=== PATIENT | female | born 1955 | race Caucasian/White ===

== ENCOUNTER 2017-11-28 09:04 | Day surgery (SDC) | payer OTHER ==
[~2017-11-28 09:04] MED LIST: CEFAZOLIN 1 GM INJ; DEXAMETHASONE 4 MG/ML 1 ML INJ; ONDANSETRON 4 MG INJ
[2017-11-28] MEDS ORDERED: MIDAZOLAM 1 MG/ML 2 ML INJ (10:03)
[2017-11-28] MEDS ORDERED: FENTAnyl 50 MCG/ML VIAL (10:03)
[2017-11-28] MEDS ORDERED: METOCLOPRAMIDE 10 MG INJ (10:04)
[2017-11-28] MEDS ORDERED: LIDOCAINE 2% (SDV) 5 ML INJ (10:05)
[2017-11-28] MEDS ORDERED: POVIDONE IODINE 10% 28.4 GM OINT (10:36)
[2017-11-28] MEDS ORDERED: FENTAnyl 50 MCG/ML VIAL IV ×2 (11:00)
[2017-11-28] MEDS ORDERED: ONDANSETRON 4 MG INJ IV (11:00)
[2017-11-28] MEDS ORDERED: HYDROmorphONE 1 MG/5 ML IV SYRINGE IV (11:00)
[2017-11-28] MEDS ORDERED: PROPOFOL 20 ML (11:11)
[2017-11-28] MEDS ORDERED: BUPIVACAINE 0.5% (SDV) 30 ML INJ (11:31)
[2017-11-28] MEDS: LIDOCAINE 1% (MPF) 30 ML INJ (12:15)
[2017-11-28] MEDS: HYDROmorphONE 1 MG/5 ML IV SYRINGE IV (13:26)
== END 2017-11-28 14:40 | disposition home or self-care (01) ==
LOC: SDS 09:04
DX: M20.12 Hallux valgus (acquired), left foot (principal); M21.612 Bunion of left foot; I10 Essential (primary) hypertension
CPT/HCPCS: 28299; 88304; 88311